=== PATIENT | female | born 1960 | race Caucasian/White ===

== ENCOUNTER → 2021-02-21 | Outpatient (CLI) | payer MEDICARE | LOC: RAD 11:17 | DX: E11.621 Type 2 diabetes mellitus with foot ulcer (principal); L97.429 Non-pressure chronic ulcer of left heel and midfoot with unspecified severity; L97.419 Non-pressure chronic ulcer of right heel and midfoot with unspecified severity; M14.671 Charcot's joint, right ankle and foot; I10 Essential (primary) hypertension; E11.40 Type 2 diabetes mellitus with diabetic neuropathy, unspecified; Z79.4 Long term (current) use of insulin | CPT/HCPCS: 73630 ==

== ENCOUNTER → 2021-02-28 | Outpatient (CLI) | payer MEDICARE | LOC: WCC 10:46 | DX: E11.621 Type 2 diabetes mellitus with foot ulcer (principal); L97.425 Non-pressure chronic ulcer of left heel and midfoot with muscle involvement without evidence of necrosis; L97.412 Non-pressure chronic ulcer of right heel and midfoot with fat layer exposed; E11.610 Type 2 diabetes mellitus with diabetic neuropathic arthropathy; I10 Essential (primary) hypertension; E11.40 Type 2 diabetes mellitus with diabetic neuropathy, unspecified; E66.01 Morbid (severe) obesity due to excess calories; Z89.411 Acquired absence of right great toe; Z89.421 Acquired absence of other right toe(s); Z68.34 Body mass index [BMI] 34.0-34.9, adult; Z88.0 Allergy status to penicillin; Z88.8 Allergy status to other drugs, medicaments and biological substances; Z79.4 Long term (current) use of insulin; Z79.2 Long term (current) use of antibiotics; Z79.899 Other long term (current) drug therapy ==

== ENCOUNTER → 2021-03-08 | Outpatient (CLI) | payer MEDICARE | LOC: WCC 08:00 | DX: E11.621 Type 2 diabetes mellitus with foot ulcer (principal); L97.525 Non-pressure chronic ulcer of other part of left foot with muscle involvement without evidence of necrosis; L97.512 Non-pressure chronic ulcer of other part of right foot with fat layer exposed; I10 Essential (primary) hypertension; E11.40 Type 2 diabetes mellitus with diabetic neuropathy, unspecified; E11.610 Type 2 diabetes mellitus with diabetic neuropathic arthropathy; Z89.411 Acquired absence of right great toe; Z89.421 Acquired absence of other right toe(s); Z79.4 Long term (current) use of insulin; E66.01 Morbid (severe) obesity due to excess calories; Z68.34 Body mass index [BMI] 34.0-34.9, adult; Z88.0 Allergy status to penicillin; Z88.8 Allergy status to other drugs, medicaments and biological substances | CPT/HCPCS: 87070; 87205 ==

== ENCOUNTER → 2021-03-14 | Outpatient (CLI) | payer MEDICARE | LOC: WCC 08:25 | DX: E11.621 Type 2 diabetes mellitus with foot ulcer (principal); L97.422 Non-pressure chronic ulcer of left heel and midfoot with fat layer exposed; L97.412 Non-pressure chronic ulcer of right heel and midfoot with fat layer exposed; E11.610 Type 2 diabetes mellitus with diabetic neuropathic arthropathy; I10 Essential (primary) hypertension; E66.01 Morbid (severe) obesity due to excess calories; Z68.34 Body mass index [BMI] 34.0-34.9, adult; Z79.4 Long term (current) use of insulin; Z89.411 Acquired absence of right great toe; Z89.421 Acquired absence of other right toe(s) ==

== ENCOUNTER → 2021-03-28 | Outpatient (CLI) | payer MEDICARE | LOC: WCC 07:22 | DX: E11.621 Type 2 diabetes mellitus with foot ulcer (principal); L97.412 Non-pressure chronic ulcer of right heel and midfoot with fat layer exposed; L97.422 Non-pressure chronic ulcer of left heel and midfoot with fat layer exposed; E11.610 Type 2 diabetes mellitus with diabetic neuropathic arthropathy; I10 Essential (primary) hypertension; E11.40 Type 2 diabetes mellitus with diabetic neuropathy, unspecified; Z79.4 Long term (current) use of insulin; Z89.411 Acquired absence of right great toe; Z89.421 Acquired absence of other right toe(s) ==

== ENCOUNTER → 2021-04-04 | Outpatient (CLI) | payer MEDICARE | END | disposition home or self-care (01) | LOC: WCC 07:21 | PROC: 0JBR0ZZ Excision of Left Foot Subcutaneous Tissue and Fascia, Open Approach (ICD-10-PCS; principal; 2021-04-04) | PROC: 0JBQ0ZZ Excision of Right Foot Subcutaneous Tissue and Fascia, Open Approach (ICD-10-PCS; principal; 2021-04-04) | DX: E11.621 Type 2 diabetes mellitus with foot ulcer (principal); L97.425 Non-pressure chronic ulcer of left heel and midfoot with muscle involvement without evidence of necrosis; L97.411 Non-pressure chronic ulcer of right heel and midfoot limited to breakdown of skin; E11.40 Type 2 diabetes mellitus with diabetic neuropathy, unspecified; E11.610 Type 2 diabetes mellitus with diabetic neuropathic arthropathy; I10 Essential (primary) hypertension; E66.01 Morbid (severe) obesity due to excess calories; Z68.34 Body mass index [BMI] 34.0-34.9, adult; Z89.411 Acquired absence of right great toe; Z89.421 Acquired absence of other right toe(s); Z79.4 Long term (current) use of insulin; Z79.899 Other long term (current) drug therapy; Z88.0 Allergy status to penicillin; Z88.8 Allergy status to other drugs, medicaments and biological substances ==

== ENCOUNTER → 2021-04-11 | Outpatient (CLI) | payer MEDICARE | LOC: WCC 07:37 | DX: E11.621 Type 2 diabetes mellitus with foot ulcer (principal); L97.525 Non-pressure chronic ulcer of other part of left foot with muscle involvement without evidence of necrosis; L97.512 Non-pressure chronic ulcer of other part of right foot with fat layer exposed; I10 Essential (primary) hypertension; E11.610 Type 2 diabetes mellitus with diabetic neuropathic arthropathy; E11.40 Type 2 diabetes mellitus with diabetic neuropathy, unspecified; E66.01 Morbid (severe) obesity due to excess calories; Z89.411 Acquired absence of right great toe; Z79.4 Long term (current) use of insulin; Z89.421 Acquired absence of other right toe(s); Z68.34 Body mass index [BMI] 34.0-34.9, adult; Z88.0 Allergy status to penicillin; Z88.8 Allergy status to other drugs, medicaments and biological substances ==

== ENCOUNTER → 2021-04-18 | Outpatient (CLI) | payer MEDICARE | LOC: WCC 07:37 | DX: E11.621 Type 2 diabetes mellitus with foot ulcer (principal); L97.425 Non-pressure chronic ulcer of left heel and midfoot with muscle involvement without evidence of necrosis; L97.412 Non-pressure chronic ulcer of right heel and midfoot with fat layer exposed; E11.610 Type 2 diabetes mellitus with diabetic neuropathic arthropathy; I10 Essential (primary) hypertension; E11.40 Type 2 diabetes mellitus with diabetic neuropathy, unspecified; E66.01 Morbid (severe) obesity due to excess calories; Z68.34 Body mass index [BMI] 34.0-34.9, adult; Z89.411 Acquired absence of right great toe; Z89.421 Acquired absence of other right toe(s); Z79.4 Long term (current) use of insulin; Z88.0 Allergy status to penicillin; Z88.8 Allergy status to other drugs, medicaments and biological substances; Z79.899 Other long term (current) drug therapy ==

== ENCOUNTER → 2021-04-18 | Outpatient (CLI) | payer MEDICARE | LOC: MRI 10:36 | DX: E11.621 Type 2 diabetes mellitus with foot ulcer (principal); L97.419 Non-pressure chronic ulcer of right heel and midfoot with unspecified severity; L97.429 Non-pressure chronic ulcer of left heel and midfoot with unspecified severity; M14.671 Charcot's joint, right ankle and foot; I10 Essential (primary) hypertension; E11.40 Type 2 diabetes mellitus with diabetic neuropathy, unspecified; E66.01 Morbid (severe) obesity due to excess calories; Z89.411 Acquired absence of right great toe; Z89.421 Acquired absence of other right toe(s); Z79.4 Long term (current) use of insulin | CPT/HCPCS: 73718 ==

== ENCOUNTER → 2021-04-25 | Outpatient (CLI) | payer MEDICARE | LOC: WCC 07:29 | DX: E11.621 Type 2 diabetes mellitus with foot ulcer (principal); L97.425 Non-pressure chronic ulcer of left heel and midfoot with muscle involvement without evidence of necrosis; L97.412 Non-pressure chronic ulcer of right heel and midfoot with fat layer exposed; E11.610 Type 2 diabetes mellitus with diabetic neuropathic arthropathy; I10 Essential (primary) hypertension; E11.40 Type 2 diabetes mellitus with diabetic neuropathy, unspecified; Z89.411 Acquired absence of right great toe; Z89.421 Acquired absence of other right toe(s); Z79.4 Long term (current) use of insulin; Z88.0 Allergy status to penicillin; Z88.8 Allergy status to other drugs, medicaments and biological substances; Z79.899 Other long term (current) drug therapy | CPT/HCPCS: 87070; 87077; 87186; 87205 ==

== ENCOUNTER → 2021-05-02 | Outpatient (CLI) | payer MEDICARE | LOC: WCC 07:29 | DX: E11.621 Type 2 diabetes mellitus with foot ulcer (principal); L97.425 Non-pressure chronic ulcer of left heel and midfoot with muscle involvement without evidence of necrosis; L97.412 Non-pressure chronic ulcer of right heel and midfoot with fat layer exposed; I10 Essential (primary) hypertension; E11.40 Type 2 diabetes mellitus with diabetic neuropathy, unspecified; E66.01 Morbid (severe) obesity due to excess calories; E11.610 Type 2 diabetes mellitus with diabetic neuropathic arthropathy; B95.7 Other staphylococcus as the cause of diseases classified elsewhere; L02.612 Cutaneous abscess of left foot; Z79.4 Long term (current) use of insulin; Z89.411 Acquired absence of right great toe; Z89.421 Acquired absence of other right toe(s); Z88.0 Allergy status to penicillin; Z88.8 Allergy status to other drugs, medicaments and biological substances ==

== ENCOUNTER → 2021-05-03 | Outpatient (CLI) | payer MEDICARE ==
[~2021-05-03] VITALS: Ht 177.8 cm; Wt 108.9 kg
== END ==
LOC: OPSV 14:47
DX: E11.621 Type 2 diabetes mellitus with foot ulcer (principal); L02.612 Cutaneous abscess of left foot; B95.7 Other staphylococcus as the cause of diseases classified elsewhere
CPT/HCPCS: 96365; J0875; J7060

== ENCOUNTER → 2021-05-09 | Outpatient (CLI) | payer MEDICARE | END | disposition home or self-care (01) | LOC: WCC 07:51 | DX: E11.621 Type 2 diabetes mellitus with foot ulcer (principal); L97.425 Non-pressure chronic ulcer of left heel and midfoot with muscle involvement without evidence of necrosis; L97.412 Non-pressure chronic ulcer of right heel and midfoot with fat layer exposed; L02.612 Cutaneous abscess of left foot; E11.40 Type 2 diabetes mellitus with diabetic neuropathy, unspecified; E11.610 Type 2 diabetes mellitus with diabetic neuropathic arthropathy; I10 Essential (primary) hypertension; E66.01 Morbid (severe) obesity due to excess calories; B95.7 Other staphylococcus as the cause of diseases classified elsewhere; Z89.411 Acquired absence of right great toe; Z89.421 Acquired absence of other right toe(s); Z79.4 Long term (current) use of insulin; Z79.899 Other long term (current) drug therapy; Z68.34 Body mass index [BMI] 34.0-34.9, adult ==

== ENCOUNTER → 2021-05-16 | Outpatient (CLI) | payer MEDICARE | LOC: WCC 07:27 | DX: E11.621 Type 2 diabetes mellitus with foot ulcer (principal); L97.412 Non-pressure chronic ulcer of right heel and midfoot with fat layer exposed; I10 Essential (primary) hypertension; E11.40 Type 2 diabetes mellitus with diabetic neuropathy, unspecified; E66.01 Morbid (severe) obesity due to excess calories; E11.610 Type 2 diabetes mellitus with diabetic neuropathic arthropathy; B95.7 Other staphylococcus as the cause of diseases classified elsewhere; L02.612 Cutaneous abscess of left foot; Z89.411 Acquired absence of right great toe; Z89.421 Acquired absence of other right toe(s); Z88.0 Allergy status to penicillin; Z88.8 Allergy status to other drugs, medicaments and biological substances ==

== ENCOUNTER → 2021-05-23 | Outpatient (CLI) | payer MEDICARE | LOC: WCC 07:17 | DX: E11.621 Type 2 diabetes mellitus with foot ulcer (principal); L97.525 Non-pressure chronic ulcer of other part of left foot with muscle involvement without evidence of necrosis; L97.512 Non-pressure chronic ulcer of other part of right foot with fat layer exposed; Z79.4 Long term (current) use of insulin; E11.610 Type 2 diabetes mellitus with diabetic neuropathic arthropathy; E11.40 Type 2 diabetes mellitus with diabetic neuropathy, unspecified; Z89.411 Acquired absence of right great toe; Z89.421 Acquired absence of other right toe(s); I10 Essential (primary) hypertension; E66.01 Morbid (severe) obesity due to excess calories; B95.7 Other staphylococcus as the cause of diseases classified elsewhere; L02.612 Cutaneous abscess of left foot; Z68.34 Body mass index [BMI] 34.0-34.9, adult; Z88.0 Allergy status to penicillin; Z88.8 Allergy status to other drugs, medicaments and biological substances | CPT/HCPCS: 87070; 87077; 87186; 87205 ==

== ENCOUNTER → 2021-05-29 | Outpatient (CLI) | payer MEDICARE ==
[~2021-05-29] VITALS: Ht 177.8 cm; Wt 103.9 kg
[2021-05-29 08:21] LABS: HEMOGLOBIN 13.1 gm/dl (12.3-15.3); RED BLOOD COUNT 4.49 M/UL (4.00-5.10); WHITE BLOOD COUNT 4.7 K/UL (4.5-11.0)
== END ==
LOC: OPSV 07:06
PROVIDERS: Nurse Practitioner Family
DX: E11.69 Type 2 diabetes mellitus with other specified complication (principal); M86.072 Acute hematogenous osteomyelitis, left ankle and foot; L02.612 Cutaneous abscess of left foot; E11.621 Type 2 diabetes mellitus with foot ulcer; E11.610 Type 2 diabetes mellitus with diabetic neuropathic arthropathy; L97.509 Non-pressure chronic ulcer of other part of unspecified foot with unspecified severity; R94.31 Abnormal electrocardiogram [ECG] [EKG]; Z88.0 Allergy status to penicillin; Z88.8 Allergy status to other drugs, medicaments and biological substances
CPT/HCPCS: 36415; 71046; 80053; 85025; 93005; 96365; J1335

== ENCOUNTER → 2021-05-30 | Outpatient (CLI) | payer MEDICARE | LOC: WCC 07:13 | DX: E11.621 Type 2 diabetes mellitus with foot ulcer (principal); L97.525 Non-pressure chronic ulcer of other part of left foot with muscle involvement without evidence of necrosis; L97.512 Non-pressure chronic ulcer of other part of right foot with fat layer exposed; E11.610 Type 2 diabetes mellitus with diabetic neuropathic arthropathy; I10 Essential (primary) hypertension; E11.40 Type 2 diabetes mellitus with diabetic neuropathy, unspecified; E66.01 Morbid (severe) obesity due to excess calories; E11.69 Type 2 diabetes mellitus with other specified complication; L02.612 Cutaneous abscess of left foot; M86.072 Acute hematogenous osteomyelitis, left ankle and foot; Z88.0 Allergy status to penicillin; Z88.8 Allergy status to other drugs, medicaments and biological substances; Z79.4 Long term (current) use of insulin; Z89.411 Acquired absence of right great toe; Z89.421 Acquired absence of other right toe(s); Z68.34 Body mass index [BMI] 34.0-34.9, adult ==

== ENCOUNTER → 2021-06-06 | Outpatient (CLI) | payer MEDICARE | LOC: WCC 07:29 | DX: E11.621 Type 2 diabetes mellitus with foot ulcer (principal); L97.425 Non-pressure chronic ulcer of left heel and midfoot with muscle involvement without evidence of necrosis; L97.412 Non-pressure chronic ulcer of right heel and midfoot with fat layer exposed; E11.610 Type 2 diabetes mellitus with diabetic neuropathic arthropathy; I10 Essential (primary) hypertension; E11.40 Type 2 diabetes mellitus with diabetic neuropathy, unspecified; E11.69 Type 2 diabetes mellitus with other specified complication; M86.072 Acute hematogenous osteomyelitis, left ankle and foot; L02.612 Cutaneous abscess of left foot; E66.01 Morbid (severe) obesity due to excess calories; Z68.34 Body mass index [BMI] 34.0-34.9, adult; Z89.411 Acquired absence of right great toe; Z89.412 Acquired absence of left great toe; Z88.0 Allergy status to penicillin; Z88.8 Allergy status to other drugs, medicaments and biological substances; Z79.4 Long term (current) use of insulin; Z79.899 Other long term (current) drug therapy | CPT/HCPCS: G0277 ==

== ENCOUNTER → 2021-06-13 | Outpatient (CLI) | payer MEDICARE | LOC: WCC 08:28 | DX: E11.621 Type 2 diabetes mellitus with foot ulcer (principal); L97.425 Non-pressure chronic ulcer of left heel and midfoot with muscle involvement without evidence of necrosis; L97.411 Non-pressure chronic ulcer of right heel and midfoot limited to breakdown of skin; E11.610 Type 2 diabetes mellitus with diabetic neuropathic arthropathy; E11.69 Type 2 diabetes mellitus with other specified complication; M86.072 Acute hematogenous osteomyelitis, left ankle and foot; I10 Essential (primary) hypertension; E11.40 Type 2 diabetes mellitus with diabetic neuropathy, unspecified; L02.612 Cutaneous abscess of left foot; E66.01 Morbid (severe) obesity due to excess calories; Z68.34 Body mass index [BMI] 34.0-34.9, adult; Z89.411 Acquired absence of right great toe; Z89.421 Acquired absence of other right toe(s); Z88.0 Allergy status to penicillin; Z88.8 Allergy status to other drugs, medicaments and biological substances; Z79.4 Long term (current) use of insulin; Z79.899 Other long term (current) drug therapy ==

== ENCOUNTER → 2021-06-28 | Outpatient (CLI) | payer MEDICARE | LOC: WCC 07:54 | DX: E11.621 Type 2 diabetes mellitus with foot ulcer (principal); L97.425 Non-pressure chronic ulcer of left heel and midfoot with muscle involvement without evidence of necrosis; E11.610 Type 2 diabetes mellitus with diabetic neuropathic arthropathy; I10 Essential (primary) hypertension; E11.40 Type 2 diabetes mellitus with diabetic neuropathy, unspecified; E11.69 Type 2 diabetes mellitus with other specified complication; M86.072 Acute hematogenous osteomyelitis, left ankle and foot; L02.612 Cutaneous abscess of left foot; E66.01 Morbid (severe) obesity due to excess calories; Z68.34 Body mass index [BMI] 34.0-34.9, adult; Z89.411 Acquired absence of right great toe; Z89.421 Acquired absence of other right toe(s); Z79.4 Long term (current) use of insulin; Z88.0 Allergy status to penicillin; Z88.8 Allergy status to other drugs, medicaments and biological substances; Z79.899 Other long term (current) drug therapy ==

== ENCOUNTER → 2021-06-30 | Outpatient (CLI) | payer MEDICARE | LOC: WCC 07:43 | DX: E11.621 Type 2 diabetes mellitus with foot ulcer (principal); L97.425 Non-pressure chronic ulcer of left heel and midfoot with muscle involvement without evidence of necrosis; E11.610 Type 2 diabetes mellitus with diabetic neuropathic arthropathy; E11.69 Type 2 diabetes mellitus with other specified complication; M86.072 Acute hematogenous osteomyelitis, left ankle and foot; L02.612 Cutaneous abscess of left foot; I10 Essential (primary) hypertension; E66.01 Morbid (severe) obesity due to excess calories; Z79.4 Long term (current) use of insulin; Z89.411 Acquired absence of right great toe; Z89.421 Acquired absence of other right toe(s) | CPT/HCPCS: G0463 ==

== ENCOUNTER → 2021-07-05 | Outpatient (CLI) | payer MEDICARE | LOC: WCC 07:29 | DX: E11.621 Type 2 diabetes mellitus with foot ulcer (principal); L97.525 Non-pressure chronic ulcer of other part of left foot with muscle involvement without evidence of necrosis; E11.69 Type 2 diabetes mellitus with other specified complication; L02.612 Cutaneous abscess of left foot; M86.072 Acute hematogenous osteomyelitis, left ankle and foot; I10 Essential (primary) hypertension; E11.610 Type 2 diabetes mellitus with diabetic neuropathic arthropathy; E11.40 Type 2 diabetes mellitus with diabetic neuropathy, unspecified; Z89.411 Acquired absence of right great toe; Z89.421 Acquired absence of other right toe(s); E66.01 Morbid (severe) obesity due to excess calories; Z68.34 Body mass index [BMI] 34.0-34.9, adult; Z88.0 Allergy status to penicillin; Z88.8 Allergy status to other drugs, medicaments and biological substances ==

== ENCOUNTER → 2021-07-12 | Outpatient (CLI) | payer MEDICARE | END | disposition home or self-care (01) | LOC: WCC 07:40 | DX: E11.621 Type 2 diabetes mellitus with foot ulcer (principal); L97.425 Non-pressure chronic ulcer of left heel and midfoot with muscle involvement without evidence of necrosis; E11.40 Type 2 diabetes mellitus with diabetic neuropathy, unspecified; E11.610 Type 2 diabetes mellitus with diabetic neuropathic arthropathy; M86.072 Acute hematogenous osteomyelitis, left ankle and foot; I10 Essential (primary) hypertension; E66.01 Morbid (severe) obesity due to excess calories; L02.612 Cutaneous abscess of left foot; Z79.4 Long term (current) use of insulin; Z89.411 Acquired absence of right great toe; Z68.34 Body mass index [BMI] 34.0-34.9, adult; Z79.2 Long term (current) use of antibiotics; Z79.899 Other long term (current) drug therapy ==

== ENCOUNTER → 2021-07-19 | Outpatient (CLI) | payer MEDICARE | LOC: WCC 07:19 | DX: E11.621 Type 2 diabetes mellitus with foot ulcer (principal); L97.425 Non-pressure chronic ulcer of left heel and midfoot with muscle involvement without evidence of necrosis; M14.671 Charcot's joint, right ankle and foot; I10 Essential (primary) hypertension; E11.40 Type 2 diabetes mellitus with diabetic neuropathy, unspecified; E66.01 Morbid (severe) obesity due to excess calories; L02.612 Cutaneous abscess of left foot; M86.072 Acute hematogenous osteomyelitis, left ankle and foot; Z89.411 Acquired absence of right great toe; Z89.421 Acquired absence of other right toe(s); Z88.0 Allergy status to penicillin; Z88.8 Allergy status to other drugs, medicaments and biological substances ==

== ENCOUNTER → 2021-07-26 | Outpatient (CLI) | payer MEDICARE | LOC: WCC 07:43 | DX: E11.621 Type 2 diabetes mellitus with foot ulcer (principal); L97.425 Non-pressure chronic ulcer of left heel and midfoot with muscle involvement without evidence of necrosis; I10 Essential (primary) hypertension; E11.40 Type 2 diabetes mellitus with diabetic neuropathy, unspecified; E66.01 Morbid (severe) obesity due to excess calories; E11.610 Type 2 diabetes mellitus with diabetic neuropathic arthropathy; L02.612 Cutaneous abscess of left foot; M86.072 Acute hematogenous osteomyelitis, left ankle and foot; Z79.4 Long term (current) use of insulin; Z89.411 Acquired absence of right great toe; Z89.421 Acquired absence of other right toe(s); Z88.0 Allergy status to penicillin; Z88.8 Allergy status to other drugs, medicaments and biological substances ==

== ENCOUNTER → 2021-08-02 | Outpatient (CLI) | payer MEDICARE | LOC: WCC 07:33 | DX: E11.621 Type 2 diabetes mellitus with foot ulcer (principal); E11.610 Type 2 diabetes mellitus with diabetic neuropathic arthropathy; L97.525 Non-pressure chronic ulcer of other part of left foot with muscle involvement without evidence of necrosis; I10 Essential (primary) hypertension; E66.01 Morbid (severe) obesity due to excess calories; E11.69 Type 2 diabetes mellitus with other specified complication; M86.072 Acute hematogenous osteomyelitis, left ankle and foot; E11.40 Type 2 diabetes mellitus with diabetic neuropathy, unspecified; L02.612 Cutaneous abscess of left foot; Z89.411 Acquired absence of right great toe; Z89.421 Acquired absence of other right toe(s); Z79.4 Long term (current) use of insulin; Z68.34 Body mass index [BMI] 34.0-34.9, adult; Z88.0 Allergy status to penicillin; Z88.8 Allergy status to other drugs, medicaments and biological substances ==

== ENCOUNTER → 2021-08-16 | Outpatient (CLI) | payer MEDICARE | LOC: WCC 07:46 | DX: E11.621 Type 2 diabetes mellitus with foot ulcer (principal); L97.521 Non-pressure chronic ulcer of other part of left foot limited to breakdown of skin; L97.525 Non-pressure chronic ulcer of other part of left foot with muscle involvement without evidence of necrosis; E11.610 Type 2 diabetes mellitus with diabetic neuropathic arthropathy; I10 Essential (primary) hypertension; E11.40 Type 2 diabetes mellitus with diabetic neuropathy, unspecified; L02.612 Cutaneous abscess of left foot; E11.69 Type 2 diabetes mellitus with other specified complication; M86.072 Acute hematogenous osteomyelitis, left ankle and foot; Z79.4 Long term (current) use of insulin; Z88.0 Allergy status to penicillin; Z88.8 Allergy status to other drugs, medicaments and biological substances; Z89.411 Acquired absence of right great toe; Z89.421 Acquired absence of other right toe(s) ==

== ENCOUNTER → 2021-08-23 | Outpatient (CLI) | payer MEDICARE | LOC: WCC 07:29 | DX: E11.621 Type 2 diabetes mellitus with foot ulcer (principal); L97.422 Non-pressure chronic ulcer of left heel and midfoot with fat layer exposed; L97.522 Non-pressure chronic ulcer of other part of left foot with fat layer exposed; E11.610 Type 2 diabetes mellitus with diabetic neuropathic arthropathy; E11.69 Type 2 diabetes mellitus with other specified complication; M86.072 Acute hematogenous osteomyelitis, left ankle and foot; I10 Essential (primary) hypertension; E11.40 Type 2 diabetes mellitus with diabetic neuropathy, unspecified; L02.612 Cutaneous abscess of left foot; E66.01 Morbid (severe) obesity due to excess calories; Z68.34 Body mass index [BMI] 34.0-34.9, adult; Z89.411 Acquired absence of right great toe; Z89.421 Acquired absence of other right toe(s); Z88.0 Allergy status to penicillin; Z88.8 Allergy status to other drugs, medicaments and biological substances; Z79.4 Long term (current) use of insulin ==

== ENCOUNTER → 2021-08-30 | Outpatient (CLI) | payer MEDICARE | END | disposition home or self-care (01) | LOC: WCC 08:05 | DX: E11.621 Type 2 diabetes mellitus with foot ulcer (principal); L97.422 Non-pressure chronic ulcer of left heel and midfoot with fat layer exposed; L97.521 Non-pressure chronic ulcer of other part of left foot limited to breakdown of skin; L97.412 Non-pressure chronic ulcer of right heel and midfoot with fat layer exposed; E11.610 Type 2 diabetes mellitus with diabetic neuropathic arthropathy; I10 Essential (primary) hypertension; L02.612 Cutaneous abscess of left foot; E11.69 Type 2 diabetes mellitus with other specified complication; M86.072 Acute hematogenous osteomyelitis, left ankle and foot; E66.01 Morbid (severe) obesity due to excess calories; Z68.29 Body mass index [BMI] 29.0-29.9, adult; Z89.411 Acquired absence of right great toe; Z89.421 Acquired absence of other right toe(s); Z79.4 Long term (current) use of insulin; Z79.2 Long term (current) use of antibiotics; Z79.899 Other long term (current) drug therapy ==

== ENCOUNTER → 2021-09-06 | Outpatient (CLI) | payer MEDICARE | END | disposition home or self-care (01) | LOC: WCC 07:39 | DX: E11.621 Type 2 diabetes mellitus with foot ulcer (principal); L97.422 Non-pressure chronic ulcer of left heel and midfoot with fat layer exposed; L97.522 Non-pressure chronic ulcer of other part of left foot with fat layer exposed; L97.412 Non-pressure chronic ulcer of right heel and midfoot with fat layer exposed; E11.610 Type 2 diabetes mellitus with diabetic neuropathic arthropathy; E11.69 Type 2 diabetes mellitus with other specified complication; M86.072 Acute hematogenous osteomyelitis, left ankle and foot; I10 Essential (primary) hypertension; L02.612 Cutaneous abscess of left foot; E66.01 Morbid (severe) obesity due to excess calories; Z79.4 Long term (current) use of insulin; Z89.411 Acquired absence of right great toe; Z89.412 Acquired absence of left great toe; Z79.899 Other long term (current) drug therapy; Z68.29 Body mass index [BMI] 29.0-29.9, adult ==

== ENCOUNTER → 2021-09-20 | Outpatient (CLI) | payer MEDICARE | LOC: WCC 08:00 | DX: E11.621 Type 2 diabetes mellitus with foot ulcer (principal); L97.422 Non-pressure chronic ulcer of left heel and midfoot with fat layer exposed; L97.412 Non-pressure chronic ulcer of right heel and midfoot with fat layer exposed; E11.610 Type 2 diabetes mellitus with diabetic neuropathic arthropathy; I10 Essential (primary) hypertension; E11.40 Type 2 diabetes mellitus with diabetic neuropathy, unspecified; E11.69 Type 2 diabetes mellitus with other specified complication; M86.072 Acute hematogenous osteomyelitis, left ankle and foot; E66.01 Morbid (severe) obesity due to excess calories; Z68.29 Body mass index [BMI] 29.0-29.9, adult; Z89.411 Acquired absence of right great toe; Z89.421 Acquired absence of other right toe(s); Z88.0 Allergy status to penicillin; Z88.8 Allergy status to other drugs, medicaments and biological substances; Z79.4 Long term (current) use of insulin; Z79.899 Other long term (current) drug therapy ==

== ENCOUNTER → 2021-09-27 | Outpatient (CLI) | payer MEDICARE | LOC: WCC 07:25 | DX: E11.621 Type 2 diabetes mellitus with foot ulcer (principal); L97.422 Non-pressure chronic ulcer of left heel and midfoot with fat layer exposed; L97.412 Non-pressure chronic ulcer of right heel and midfoot with fat layer exposed; M14.671 Charcot's joint, right ankle and foot; I10 Essential (primary) hypertension; E11.40 Type 2 diabetes mellitus with diabetic neuropathy, unspecified; E66.01 Morbid (severe) obesity due to excess calories; M86.072 Acute hematogenous osteomyelitis, left ankle and foot; Z79.4 Long term (current) use of insulin; Z89.411 Acquired absence of right great toe; Z89.421 Acquired absence of other right toe(s); Z88.0 Allergy status to penicillin; Z88.8 Allergy status to other drugs, medicaments and biological substances ==

== ENCOUNTER → 2021-10-04 | Outpatient (CLI) | payer MEDICARE | END | disposition home or self-care (01) | LOC: WCC 07:35 | PROC: 0JBQ0ZZ Excision of Right Foot Subcutaneous Tissue and Fascia, Open Approach (ICD-10-PCS; principal; 2021-10-04) | DX: E11.621 Type 2 diabetes mellitus with foot ulcer (principal); L97.412 Non-pressure chronic ulcer of right heel and midfoot with fat layer exposed; E11.610 Type 2 diabetes mellitus with diabetic neuropathic arthropathy; E11.69 Type 2 diabetes mellitus with other specified complication; M86.072 Acute hematogenous osteomyelitis, left ankle and foot; I10 Essential (primary) hypertension; E66.01 Morbid (severe) obesity due to excess calories; Z68.29 Body mass index [BMI] 29.0-29.9, adult; Z79.4 Long term (current) use of insulin; Z79.899 Other long term (current) drug therapy; Z88.0 Allergy status to penicillin; Z88.8 Allergy status to other drugs, medicaments and biological substances; Z89.411 Acquired absence of right great toe; Z89.421 Acquired absence of other right toe(s) ==

== ENCOUNTER → 2021-10-11 | Outpatient (CLI) | payer MEDICARE | END | disposition home or self-care (01) | LOC: WCC 07:13 | DX: E11.621 Type 2 diabetes mellitus with foot ulcer (principal); L97.412 Non-pressure chronic ulcer of right heel and midfoot with fat layer exposed; E11.610 Type 2 diabetes mellitus with diabetic neuropathic arthropathy; E11.69 Type 2 diabetes mellitus with other specified complication; M86.072 Acute hematogenous osteomyelitis, left ankle and foot; I10 Essential (primary) hypertension; E11.40 Type 2 diabetes mellitus with diabetic neuropathy, unspecified; E66.01 Morbid (severe) obesity due to excess calories; Z79.4 Long term (current) use of insulin; Z79.899 Other long term (current) drug therapy; Z89.411 Acquired absence of right great toe; Z89.421 Acquired absence of other right toe(s); Z68.29 Body mass index [BMI] 29.0-29.9, adult | CPT/HCPCS: 87070; 87077; 87186; 87205 ==

== ENCOUNTER → 2021-10-17 | Outpatient (CLI) | payer MEDICARE ==
[~2021-10-17] VITALS: Ht 177.8 cm; Wt 93.9 kg
[2021-10-17 13:58] LABS: RED BLOOD COUNT 4.09 M/UL (4.00-5.10); WHITE BLOOD COUNT 7.3 K/UL (4.5-11.0)
== END ==
LOC: OPSV 13:20
PROVIDERS: Nurse Practitioner Family
DX: E11.621 Type 2 diabetes mellitus with foot ulcer (principal); L97.529 Non-pressure chronic ulcer of other part of left foot with unspecified severity; E11.69 Type 2 diabetes mellitus with other specified complication; M86.072 Acute hematogenous osteomyelitis, left ankle and foot; L03.116 Cellulitis of left lower limb
CPT/HCPCS: 73630; 80053; 85025; 85652; 86140; 96365; J0875; J7060

== ENCOUNTER → 2021-10-17 | Outpatient (CLI) | payer MEDICARE | LOC: WCC 08:05 | DX: E11.621 Type 2 diabetes mellitus with foot ulcer (principal); L97.411 Non-pressure chronic ulcer of right heel and midfoot limited to breakdown of skin; L97.421 Non-pressure chronic ulcer of left heel and midfoot limited to breakdown of skin; E11.610 Type 2 diabetes mellitus with diabetic neuropathic arthropathy; I10 Essential (primary) hypertension; E11.40 Type 2 diabetes mellitus with diabetic neuropathy, unspecified; E66.01 Morbid (severe) obesity due to excess calories; L03.116 Cellulitis of left lower limb; R60.0 Localized edema; Z68.29 Body mass index [BMI] 29.0-29.9, adult; Z79.4 Long term (current) use of insulin; Z89.411 Acquired absence of right great toe; Z89.421 Acquired absence of other right toe(s); Z88.0 Allergy status to penicillin; Z88.8 Allergy status to other drugs, medicaments and biological substances; Z79.899 Other long term (current) drug therapy | CPT/HCPCS: 97597 ==

== ENCOUNTER → 2021-10-18 | Outpatient (CLI) | payer MEDICARE | LOC: WCC 07:40 | DX: E11.621 Type 2 diabetes mellitus with foot ulcer (principal); L97.522 Non-pressure chronic ulcer of other part of left foot with fat layer exposed; E11.40 Type 2 diabetes mellitus with diabetic neuropathy, unspecified; I10 Essential (primary) hypertension | CPT/HCPCS: G0463 ==

== ENCOUNTER → 2021-10-25 | Outpatient (CLI) | payer MEDICARE | LOC: WCC 06:50 | DX: E11.621 Type 2 diabetes mellitus with foot ulcer (principal); L97.422 Non-pressure chronic ulcer of left heel and midfoot with fat layer exposed; E11.610 Type 2 diabetes mellitus with diabetic neuropathic arthropathy; I10 Essential (primary) hypertension; E11.40 Type 2 diabetes mellitus with diabetic neuropathy, unspecified; L03.116 Cellulitis of left lower limb; R60.0 Localized edema; E66.01 Morbid (severe) obesity due to excess calories; Z79.4 Long term (current) use of insulin; Z89.411 Acquired absence of right great toe; Z89.421 Acquired absence of other right toe(s); Z68.29 Body mass index [BMI] 29.0-29.9, adult ==

== ENCOUNTER → 2021-11-01 | Outpatient (CLI) | payer MEDICARE | END | disposition home or self-care (01) | LOC: WCC 07:05 | DX: E11.621 Type 2 diabetes mellitus with foot ulcer (principal); L97.422 Non-pressure chronic ulcer of left heel and midfoot with fat layer exposed; E11.610 Type 2 diabetes mellitus with diabetic neuropathic arthropathy; E11.40 Type 2 diabetes mellitus with diabetic neuropathy, unspecified; R60.0 Localized edema; M79.672 Pain in left foot; I10 Essential (primary) hypertension; E66.01 Morbid (severe) obesity due to excess calories; Z89.411 Acquired absence of right great toe; Z89.421 Acquired absence of other right toe(s); Z79.4 Long term (current) use of insulin; Z68.29 Body mass index [BMI] 29.0-29.9, adult ==

== ENCOUNTER → 2021-11-08 | Outpatient (CLI) | payer MEDICARE | END | disposition home or self-care (01) | LOC: WCC 07:43 | DX: E11.621 Type 2 diabetes mellitus with foot ulcer (principal); L97.425 Non-pressure chronic ulcer of left heel and midfoot with muscle involvement without evidence of necrosis; E11.610 Type 2 diabetes mellitus with diabetic neuropathic arthropathy; I10 Essential (primary) hypertension; L02.612 Cutaneous abscess of left foot; M79.672 Pain in left foot; E66.01 Morbid (severe) obesity due to excess calories; Z89.411 Acquired absence of right great toe; Z89.421 Acquired absence of other right toe(s); Z79.4 Long term (current) use of insulin; Z68.29 Body mass index [BMI] 29.0-29.9, adult; Z79.899 Other long term (current) drug therapy ==

== ENCOUNTER → 2021-11-16 | Outpatient (CLI) | payer MEDICARE | LOC: KOH-I 10:12 | DX: E11.621 Type 2 diabetes mellitus with foot ulcer (principal); L97.529 Non-pressure chronic ulcer of other part of left foot with unspecified severity | CPT/HCPCS: 73718 ==

== ENCOUNTER → 2021-11-16 | Outpatient (CLI) | payer MEDICARE ==
[2021-11-16 13:33] LABS: HEMOGLOBIN 12.5 gm/dl (12.3-15.3); RED BLOOD COUNT 4.02 M/UL (4.00-5.10); WHITE BLOOD COUNT 5.5 K/UL (4.5-11.0)
== END ==
LOC: LAB 13:12
PROVIDERS: Nurse Practitioner Family
DX: E11.621 Type 2 diabetes mellitus with foot ulcer (principal); L97.509 Non-pressure chronic ulcer of other part of unspecified foot with unspecified severity; E11.22 Type 2 diabetes mellitus with diabetic chronic kidney disease; N18.31 Chronic kidney disease, stage 3a
CPT/HCPCS: 36415; 80053; 85027; 85652; 86140

== ENCOUNTER → 2021-11-23 | Outpatient (CLI) | payer MEDICARE | LOC: WCC 08:03 | DX: E11.621 Type 2 diabetes mellitus with foot ulcer (principal); L97.425 Non-pressure chronic ulcer of left heel and midfoot with muscle involvement without evidence of necrosis; M14.671 Charcot's joint, right ankle and foot; I10 Essential (primary) hypertension; E11.40 Type 2 diabetes mellitus with diabetic neuropathy, unspecified; E66.01 Morbid (severe) obesity due to excess calories; L02.612 Cutaneous abscess of left foot; R60.0 Localized edema; Z79.4 Long term (current) use of insulin; Z89.411 Acquired absence of right great toe; Z89.421 Acquired absence of other right toe(s); Z88.0 Allergy status to penicillin; Z88.8 Allergy status to other drugs, medicaments and biological substances ==

== ENCOUNTER → 2021-11-29 | Outpatient (CLI) | payer MEDICARE | LOC: WCC 07:28 | DX: E11.621 Type 2 diabetes mellitus with foot ulcer (principal); L97.425 Non-pressure chronic ulcer of left heel and midfoot with muscle involvement without evidence of necrosis; E11.610 Type 2 diabetes mellitus with diabetic neuropathic arthropathy; I10 Essential (primary) hypertension; E11.40 Type 2 diabetes mellitus with diabetic neuropathy, unspecified; E66.01 Morbid (severe) obesity due to excess calories; L02.612 Cutaneous abscess of left foot; M79.672 Pain in left foot; R60.0 Localized edema; Z68.29 Body mass index [BMI] 29.0-29.9, adult; Z89.411 Acquired absence of right great toe; Z89.421 Acquired absence of other right toe(s); Z79.2 Long term (current) use of antibiotics; Z79.4 Long term (current) use of insulin; Z79.899 Other long term (current) drug therapy ==

== ENCOUNTER → 2021-12-27 | Outpatient (CLI) | payer MEDICARE | LOC: WCC 07:03 | DX: E11.621 Type 2 diabetes mellitus with foot ulcer (principal); L97.425 Non-pressure chronic ulcer of left heel and midfoot with muscle involvement without evidence of necrosis; I12.9 Hypertensive chronic kidney disease with stage 1 through stage 4 chronic kidney disease, or unspecified chronic kidney disease; E11.22 Type 2 diabetes mellitus with diabetic chronic kidney disease; N18.9 Chronic kidney disease, unspecified; E11.40 Type 2 diabetes mellitus with diabetic neuropathy, unspecified; E66.01 Morbid (severe) obesity due to excess calories; E11.610 Type 2 diabetes mellitus with diabetic neuropathic arthropathy; L02.612 Cutaneous abscess of left foot; R60.0 Localized edema; Z79.4 Long term (current) use of insulin; Z89.411 Acquired absence of right great toe; Z89.421 Acquired absence of other right toe(s); Z88.0 Allergy status to penicillin; Z88.8 Allergy status to other drugs, medicaments and biological substances ==

== ENCOUNTER → 2021-12-27 | Outpatient (CLI) | payer MEDICARE | LOC: LAB 10:49 | PROVIDERS: Nurse Practitioner Family | DX: E11.621 Type 2 diabetes mellitus with foot ulcer (principal); E11.22 Type 2 diabetes mellitus with diabetic chronic kidney disease; N18.9 Chronic kidney disease, unspecified | CPT/HCPCS: 36415; 80053 ==

== ENCOUNTER → 2022-01-10 | Outpatient (CLI) | payer MEDICARE | LOC: WCC 07:12 | DX: E11.621 Type 2 diabetes mellitus with foot ulcer (principal); L97.425 Non-pressure chronic ulcer of left heel and midfoot with muscle involvement without evidence of necrosis; L97.412 Non-pressure chronic ulcer of right heel and midfoot with fat layer exposed; I12.9 Hypertensive chronic kidney disease with stage 1 through stage 4 chronic kidney disease, or unspecified chronic kidney disease; E11.22 Type 2 diabetes mellitus with diabetic chronic kidney disease; N18.9 Chronic kidney disease, unspecified; E11.40 Type 2 diabetes mellitus with diabetic neuropathy, unspecified; E66.01 Morbid (severe) obesity due to excess calories; E11.610 Type 2 diabetes mellitus with diabetic neuropathic arthropathy; L02.612 Cutaneous abscess of left foot; M86.072 Acute hematogenous osteomyelitis, left ankle and foot; R60.0 Localized edema; Z79.4 Long term (current) use of insulin; Z89.411 Acquired absence of right great toe; Z89.421 Acquired absence of other right toe(s); Z88.0 Allergy status to penicillin; Z88.8 Allergy status to other drugs, medicaments and biological substances ==

== ENCOUNTER → 2022-01-17 | Outpatient (CLI) | payer MEDICARE | LOC: RT 10:44 | DX: E11.69 Type 2 diabetes mellitus with other specified complication (principal); M86.072 Acute hematogenous osteomyelitis, left ankle and foot; E11.621 Type 2 diabetes mellitus with foot ulcer | CPT/HCPCS: 71046; 93005 ==

== ENCOUNTER → 2022-01-17 | Outpatient (CLI) | payer MEDICARE | END | disposition home or self-care (01) | LOC: WCC 06:50 | DX: E11.621 Type 2 diabetes mellitus with foot ulcer (principal); L97.425 Non-pressure chronic ulcer of left heel and midfoot with muscle involvement without evidence of necrosis; L97.411 Non-pressure chronic ulcer of right heel and midfoot limited to breakdown of skin; I12.9 Hypertensive chronic kidney disease with stage 1 through stage 4 chronic kidney disease, or unspecified chronic kidney disease; E11.22 Type 2 diabetes mellitus with diabetic chronic kidney disease; N18.9 Chronic kidney disease, unspecified; E11.610 Type 2 diabetes mellitus with diabetic neuropathic arthropathy; E11.69 Type 2 diabetes mellitus with other specified complication; M86.072 Acute hematogenous osteomyelitis, left ankle and foot; L02.612 Cutaneous abscess of left foot; R60.0 Localized edema; E66.01 Morbid (severe) obesity due to excess calories; Z79.4 Long term (current) use of insulin; Z79.899 Other long term (current) drug therapy; Z68.29 Body mass index [BMI] 29.0-29.9, adult | CPT/HCPCS: 97597 ==

== ENCOUNTER → 2022-01-24 | Outpatient (CLI) | payer MEDICARE | LOC: WCC 07:26 | DX: E11.621 Type 2 diabetes mellitus with foot ulcer (principal); L97.425 Non-pressure chronic ulcer of left heel and midfoot with muscle involvement without evidence of necrosis; L97.412 Non-pressure chronic ulcer of right heel and midfoot with fat layer exposed; M14.671 Charcot's joint, right ankle and foot; Z79.4 Long term (current) use of insulin; E11.40 Type 2 diabetes mellitus with diabetic neuropathy, unspecified; E66.01 Morbid (severe) obesity due to excess calories; L02.612 Cutaneous abscess of left foot; M86.072 Acute hematogenous osteomyelitis, left ankle and foot; R60.0 Localized edema; I12.9 Hypertensive chronic kidney disease with stage 1 through stage 4 chronic kidney disease, or unspecified chronic kidney disease; E11.22 Type 2 diabetes mellitus with diabetic chronic kidney disease; N18.9 Chronic kidney disease, unspecified; Z89.411 Acquired absence of right great toe; Z89.421 Acquired absence of other right toe(s); Z88.0 Allergy status to penicillin; Z88.8 Allergy status to other drugs, medicaments and biological substances ==

== ENCOUNTER → 2022-01-31 | Outpatient (CLI) | payer MEDICARE | LOC: WCC 07:25 | DX: E11.621 Type 2 diabetes mellitus with foot ulcer (principal); L97.425 Non-pressure chronic ulcer of left heel and midfoot with muscle involvement without evidence of necrosis; L97.411 Non-pressure chronic ulcer of right heel and midfoot limited to breakdown of skin; I10 Essential (primary) hypertension; Z88.0 Allergy status to penicillin; Z88.8 Allergy status to other drugs, medicaments and biological substances; Z79.4 Long term (current) use of insulin; Z79.899 Other long term (current) drug therapy | CPT/HCPCS: 97597 ==

== ENCOUNTER → 2022-02-06 | Outpatient (CLI) | payer MEDICARE ==
[~2022-02-06] MED LIST: ATENOLOL25 MG PO; ATORVASTATIN CA40 MG PO; AZTREONAM1 GM INJ; CYMBALTA60 MG PO; FERROUS SULFAT325 MG PO; KERENDIA20 MG PO; LISINOPRIL5 MG PO; TRAZODONE HCL100 MG PO; TYLENOL EXTRA500 MG PO; VANCOCIN IV 11000 MG IV
== END ==
LOC: WCC 08:01
DX: E11.621 Type 2 diabetes mellitus with foot ulcer (principal); L97.425 Non-pressure chronic ulcer of left heel and midfoot with muscle involvement without evidence of necrosis; L97.411 Non-pressure chronic ulcer of right heel and midfoot limited to breakdown of skin; I12.9 Hypertensive chronic kidney disease with stage 1 through stage 4 chronic kidney disease, or unspecified chronic kidney disease; E11.22 Type 2 diabetes mellitus with diabetic chronic kidney disease; N18.9 Chronic kidney disease, unspecified; E11.610 Type 2 diabetes mellitus with diabetic neuropathic arthropathy; E11.40 Type 2 diabetes mellitus with diabetic neuropathy, unspecified; E66.01 Morbid (severe) obesity due to excess calories; L02.612 Cutaneous abscess of left foot; E11.69 Type 2 diabetes mellitus with other specified complication; M86.072 Acute hematogenous osteomyelitis, left ankle and foot; R60.0 Localized edema; Z79.4 Long term (current) use of insulin; Z89.411 Acquired absence of right great toe; Z89.421 Acquired absence of other right toe(s); Z68.29 Body mass index [BMI] 29.0-29.9, adult
CPT/HCPCS: 97597

== ENCOUNTER → 2022-02-07 | Outpatient (CLI) | payer MEDICARE ==
[~2022-02-07] VITALS: Ht 177.8 cm; Wt 96.6 kg
== END ==
LOC: OPSV 10:48
DX: M79.672 Pain in left foot (principal); E11.621 Type 2 diabetes mellitus with foot ulcer; M14.671 Charcot's joint, right ankle and foot; E11.22 Type 2 diabetes mellitus with diabetic chronic kidney disease; I12.9 Hypertensive chronic kidney disease with stage 1 through stage 4 chronic kidney disease, or unspecified chronic kidney disease; N18.9 Chronic kidney disease, unspecified; E11.40 Type 2 diabetes mellitus with diabetic neuropathy, unspecified; E66.01 Morbid (severe) obesity due to excess calories; L02.612 Cutaneous abscess of left foot; M86.072 Acute hematogenous osteomyelitis, left ankle and foot; R60.0 Localized edema; Z79.4 Long term (current) use of insulin; Z89.411 Acquired absence of right great toe; Z89.421 Acquired absence of other right toe(s)
CPT/HCPCS: 73630; 96365; J0875; J7060

== ENCOUNTER → 2022-02-08 | Outpatient (CLI) | payer MEDICARE | END | disposition home or self-care (01) | LOC: WCC 07:22 | DX: E11.621 Type 2 diabetes mellitus with foot ulcer (principal); L97.411 Non-pressure chronic ulcer of right heel and midfoot limited to breakdown of skin; L97.415 Non-pressure chronic ulcer of right heel and midfoot with muscle involvement without evidence of necrosis ==

== ENCOUNTER 2022-02-10 20:37 | Inpatient (IN) | payer MEDICARE ==
[~2022-02-10] VITALS: Ht 180.3 cm; Wt 96.6 kg
[2022-02-10 23:33] LABS: HEMOGLOBIN 11.5 gm/dl (12.3-15.3); RED BLOOD COUNT 3.76 M/UL (4.00-5.10); WHITE BLOOD COUNT 9.3 K/UL (4.5-11.0)
[2022-02-11] MEDS ORDERED: ATENOLOL25 MG PO (10:51)
[2022-02-11] MEDS ORDERED: CYMBALTA60 MG PO (10:51)
[2022-02-11] MEDS ORDERED: TRAZODONE HCL100 MG PO (10:51)
[2022-02-11] MEDS ORDERED: LISINOPRIL5 MG PO (10:52)
[2022-02-11] MEDS ORDERED: FERROUS SULFAT325 MG PO (10:52)
[2022-02-11] MEDS ORDERED: ATORVASTATIN CA40 MG PO (10:52)
[2022-02-11] MEDS ORDERED: TYLENOL EXTRA500 MG PO (10:53)
[2022-02-11] MEDS ORDERED: KERENDIA20 MG PO (10:53)
[2022-02-11] MEDS ORDERED: AZTREONAM1 GM INJ (18:56)
[2022-02-11] MEDS ORDERED: VANCOCIN IV 11000 MG IV (18:59)
== END 2022-02-11 12:09 | DRG 638 ==
LOC: ER1 20:37 → CDU 02-11 02:57 → M/S 02-11 11:41
PROVIDERS: Family Medicine; ADMIT Student in an Organized Health Care Education/Training Program
DX: E11.69 Type 2 diabetes mellitus with other specified complication (principal); L03.115 Cellulitis of right lower limb; M86.8X7 Other osteomyelitis, ankle and foot; E78.00 Pure hypercholesterolemia, unspecified; Z20.822 Contact with and (suspected) exposure to COVID-19; N18.30 Chronic kidney disease, stage 3 unspecified; E66.9 Obesity, unspecified; I12.9 Hypertensive chronic kidney disease with stage 1 through stage 4 chronic kidney disease, or unspecified chronic kidney disease; D63.1 Anemia in chronic kidney disease; E11.22 Type 2 diabetes mellitus with diabetic chronic kidney disease; Z89.422 Acquired absence of other left toe(s); Z89.421 Acquired absence of other right toe(s); Z88.0 Allergy status to penicillin; Z68.29 Body mass index [BMI] 29.0-29.9, adult
CPT/HCPCS: 73630; 80053; 82962; 83605; 85025; 85652; 86140; 87040; 96374; 96375; 99284; J1650; J3370; J7030; J7070; U0002

== ENCOUNTER → 2022-02-28 | Outpatient (CLI) | payer MEDICARE | LOC: WCC 07:18 | DX: E11.621 Type 2 diabetes mellitus with foot ulcer (principal); L97.425 Non-pressure chronic ulcer of left heel and midfoot with muscle involvement without evidence of necrosis; M14.671 Charcot's joint, right ankle and foot; I10 Essential (primary) hypertension; E11.40 Type 2 diabetes mellitus with diabetic neuropathy, unspecified; E66.01 Morbid (severe) obesity due to excess calories; L02.612 Cutaneous abscess of left foot; M86.072 Acute hematogenous osteomyelitis, left ankle and foot; R60.0 Localized edema; E11.22 Type 2 diabetes mellitus with diabetic chronic kidney disease; N18.9 Chronic kidney disease, unspecified; M86.071 Acute hematogenous osteomyelitis, right ankle and foot; Z79.4 Long term (current) use of insulin; Z89.411 Acquired absence of right great toe; Z89.421 Acquired absence of other right toe(s); Z88.0 Allergy status to penicillin; Z88.8 Allergy status to other drugs, medicaments and biological substances ==

== ENCOUNTER → 2022-03-07 | Outpatient (CLI) | payer MEDICARE | LOC: WCC 07:23 | DX: E11.621 Type 2 diabetes mellitus with foot ulcer (principal); L97.425 Non-pressure chronic ulcer of left heel and midfoot with muscle involvement without evidence of necrosis; M14.671 Charcot's joint, right ankle and foot; E11.40 Type 2 diabetes mellitus with diabetic neuropathy, unspecified; E66.01 Morbid (severe) obesity due to excess calories; L02.612 Cutaneous abscess of left foot; M86.072 Acute hematogenous osteomyelitis, left ankle and foot; R60.0 Localized edema; I12.9 Hypertensive chronic kidney disease with stage 1 through stage 4 chronic kidney disease, or unspecified chronic kidney disease; E11.22 Type 2 diabetes mellitus with diabetic chronic kidney disease; N18.9 Chronic kidney disease, unspecified; M86.071 Acute hematogenous osteomyelitis, right ankle and foot; Z79.4 Long term (current) use of insulin; Z89.411 Acquired absence of right great toe; Z89.421 Acquired absence of other right toe(s); Z88.0 Allergy status to penicillin; Z88.8 Allergy status to other drugs, medicaments and biological substances ==